=== PATIENT | female | born 1995 | race Caucasian/White ===

== ENCOUNTER 2018-07-17 16:13 | Emergency (ER) | payer MEDICAID ==
[~2018-07-17] VITALS: Ht 144.8 cm; Wt 58.0 kg
[~2018-07-17 16:13] MED LIST: PREN1TAB79 PO
[2018-07-17 16:25] VITALS: Ht 144.8 cm; Wt 58.0 kg
[2018-07-17] MEDS ORDERED: PRED20TA PO (17:03)
--- NOTE | 2018-07-17 17:06 | ERD ---
ER Documentation Chief Complaint Chief Complaint CONGESTION X 2 WEEKS HPI 23-year-old female is here stating that at night she has difficulty breathing secondary to chest congestion and phlegm. During the day mostly she is okay although she does have some cough. Symptoms have been going on for over 3 weeks. No fever. No vomiting. No vomiting. ROS All systems reviewed and are negative except as per history of present illness. Medications Home Meds Active Scripts Prednisone* (Prednisone*) 20 Mg Tab, 40 MG PO DAILY for 4 Days, TAB Prov:JOSE RAUL IRENE PA-C 07/17/18 Reported Medications Vit W-Ca,Fe,FA(<1 mg) ( Vitamins) 1 Each Tablet, 1 EACH PO, TAB 01/16/16 Allergies Allergies: Coded Allergies: No Known Allergy (Unverified , 01/16/16) PMhx/Soc Hx Alcohol Use: No Hx Substance Use: No Hx Tobacco Use: No Smoking Status: Never smoker FmHx Family History: No diabetes Physical Exam Vitals Vital Signs Date Temp Pulse Resp B/P (MAP) Pulse Ox O2 O2 Flow FiO2 Time Delivery Rate 07/17/18 97.8 83 20 106/62 98 16:25 (77) Physical Exam INITIAL VITAL SIGNS: Reviewed by me GENERAL: Awake, alert and oriented x 4, well appearing, nontoxic, speaking in full sentences. No acute distress HEAD: Atraumatic NECK: Supple. No masses. Full range of motion. No meningismus. No midline tenderness. EYES: EOMI. PERRL. EAR: No tenderness over the mastoids bilaterally. No exudates in the canals. TMs nonerythematous. NOSE: Normal nose. THROAT: No tonilar erythema or edema. No exudates. Uvula midline. No kissing tonsils. RESPIRATORY: Clear to auscultation bilaterally. Symmetric chest wall rise. No wheezing or rales. No accessory muscle use. CV: Regular rate and rhythm. No murmurs, rubs, or gallops. ABDOMEN: Soft, Nontender. Negative [place]. Negative McBurneys point te nderness. No CVA tenderness bilaterally. No guarding. No rebound. Procedures/MDM 23-year-old is here for coughing and congestion for the past 3 weeks it is worse at night and gives her sensation that she feels like she cannot breathe especially when she is lying down. Exam is normal. I doubt she needs antibiotics. She is given a short course of prednisone. Patient counseled regarding my diagnostic impression and care plan. Prior to discharge all questions answered. Pt agrees with treatment plan and understands strict return precautions. Pt is instructed to follow up with primary care provider within 24- 48 hours. Precautionary instructions provided including instructions to return to the ER if not improving or for any worsening or changing symptoms or concerns. Departure Diagnosis: Primary Impression: Chest congestion Condition: Stable Patient Instructions: Uri, Viral, No Abx (Adult) Additional Instructions: Llame al doctor MAANA y samara maricruz RAGHAV PARA DENTRO DE 1-2 NAZARIO.Dgale a la se cretaria que nosotros le instruimos hacer esta raghav.Avise o llame si molina condicin se empeora antes de la raghav. Regresa aqui si peor o no mejor. JOSE RAUL IRENE PA-C Jul 17, 2018 17:06
== END 2018-07-17 18:18 | disposition home or self-care (01) ==
LOC: FTE 16:13
DX: R09.89 Other specified symptoms and signs involving the circulatory and respiratory systems (principal)
CPT/HCPCS: 99283

== ENCOUNTER 2018-09-04 19:24 | Outpatient (CLI) | payer MEDICAID ==
[~2018-09-04] VITALS: Ht 142.2 cm; Wt 60.7 kg
[~2018-09-04 19:24] MED LIST changes: +PRED20TA PO
[2018-09-04 20:11] VITALS: BP 103/67; PULSE 101; RESP 18
[2018-09-04] MEDS ORDERED: FERR134T PO (20:13)
--- NOTE | 2018-09-04 21:18 | PN ---
Triage Information Date/Time Reason for visit: DFM Weeks of Gestation 35 weeks and 6 days /Para Diabetes: none Hypertention: none Objective Vital Signs Date Temp Pulse Resp B/P (MAP) Pulse Ox O2 O2 Flow FiO2 Time Delivery Rate 09/04/18 98.0 101 18 103/67 Room Air 20:11 (79) Heart Rate: 120's Heart Rate Comments Reactive Results/Medications Imaging Results BPP8/8 Disposition: Discharge Assessment/Plan While being monitored, patient feels the baby move MAXIMUS JENKINS MD Sep 04, 2018 21:18
--- NOTE | 2018-09-05 05:35 | TRIAGE ---
OB Triage Datetime Report Generated by CPN: 09/05/2018 05:35 Datetime: 09/04/2018 19:56 Stage of : OB Triage Labor Evaluation Monitor Mode: External Quality: Mild Pattern: Normal: <= 5 Contractions in 10 Minutes Resting Tone [place]: Relaxed Heart Rate FHR Baseline Rate: 140 Monitor Mode: External US FHR Baseline Changes: No Baseline Change Variability: Moderate 6-25 bpm Accelerations: 15X15 Decelerations: None Category: Category I Datetime: 09/04/2018 19:47 EGA: 35.6 Datetime: 09/04/2018 19:45 Time of Arrival: 09/04/2018 19:15 Arrived By: Ambulatory Arrived From: Home Chief Complaint: sent from clinic w/ orders for NST/BPP. States "baby moving as usual but less than Dr wants". Movement: Decreased Contractions: Denies/Absent Rupture of Membranes: Denies Vaginal Bleeding: None Vaginal Discharge: Denies Recent Sexual Intercouse: Denies Abdominal Trauma: Not Applicable Patient Complaints: None Time Provider Notified: 09/05/2018 20:55 Provider Notified: Dr Ramirez Initial Plan: NST, BPP Datetime: 09/04/2018 19:34 Stage of : OB Triage Maternal Assessment Level of Consciousness: Fully Conscious Headache: Denies Blurred Vision: No Nausea/Vomiting: Denies RUQ Epigastric Pain: Denies Facial Edema: None Labor Evaluation Monitor Mode: External Resting Tone [place]: Relaxed Monitor Mode: External US Comments: FHT 135 Pain Assessment Pain Scale: 0 Pain Presence: None/Denies Pain Type: N/A
== END 2018-09-04 21:15 | disposition home or self-care (01) ==
LOC: OBT 19:24 → L-D 19:24 → OBT 21:15
PROVIDERS: ATTEND Obstetrics & Gynecology
DX: O36.8130 Decreased fetal movements, third trimester, not applicable or unspecified (principal); Z3A.35 35 weeks gestation of pregnancy
CPT/HCPCS: 76818; Z7500; G0463

== ENCOUNTER 2018-10-01 16:08 | Inpatient (IN) | payer MEDICAID ==
[~2018-10-01] VITALS: Ht 142.2 cm; Wt 61.2 kg
[~2018-10-01 16:08] MED LIST changes: +FERR134T PO; -PRED20TA PO
--- NOTE | 2018-10-01 16:31 | TRIAGE ---
OB Triage Datetime Report Generated by CPN: 10/01/2018 16:30 Datetime: 10/01/2018 16:22 Vaginal Exam Dilatation (cms): 4.0 Effacement (%): 100 Station: -2 Exam By: Morgan WHITTAKER Datetime: 10/01/2018 16:19 Stage of : OB Triage Assessment Type: Triage Time of Arrival: 10/01/2018 16:00 EGA: 39.5 Arrived By: Ambulatory Arrived From: Home Chief Complaint: UC'S Movement: Present Contractions: Regular Contractions: 1 -10 MINUTES Rupture of Membranes: Denies Vaginal Bleeding: None Vaginal Discharge: Denies Recent Sexual Intercouse: Denies Abdominal Trauma: Not Applicable Patient Complaints: Contractions Time Provider Notified: 10/01/2018 16:29 Provider Notified: DR. PONCE Initial Plan: EFM VE CALL MD Maternal Assessment Level of Consciousness: Fully Conscious DTR's/Clonus: DTRs 2+; No Clonus Headache: Denies Blurred Vision: No Respiratory Effort: Unlabored; Regular Rhythm; Equal Expansion Breath Sounds, Left: Clear and Equal Breath Sounds, Right: Clear and Equal Nausea/Vomiting: Denies RUQ Epigastric Pain: Denies Lower Extremities Edema: None Upper Extremities Edema: None Degree: None Facial Edema: None Temperature Route: Oral Fall Risk Assessment History of Falling: (0) No Secondary Diagnosis: (0) No Ambulatory Aid: (0) Bedrest/Nurse Assist IV Therapy: (0) No Gait: (0) Normal/Bedrest/Immobile Mental Status: (0) Oriented to Own Ability Fall Score: 0 Fall Risk Score Definition: No Risk: No action required Labor Evaluation Monitor Mode: External (Annotations: INIITIAL PLACMENT ) Monitor Mode: External US (Annotations: INIIIAL PLACEMENT ) Pain Assessment Pain Scale: 5 Pain Presence: Intermittent Pain Type: Cramping Pain Location: Abdomen Datetime: 09/04/2018 21:04 Stage of : OB Triage Datetime: 09/04/2018 20:55 Stage of : OB Triage Heart Rate FHR Baseline Rate: 130 Monitor Mode: External US FHR Baseline Changes: No Baseline Change Variability: Moderate 6-25 bpm Accelerations: 15X15 Decelerations: None Category: Category I Datetime: 09/04/2018 19:47 EGA: 35.6
[2018-10-01] MEDS ORDERED: LIDOCAINE 1% (MPF) 30 ML INJ INJ PRN (17:00)
[2018-10-01] MEDS ORDERED: OXYTOCIN 30 UNITS/LR 500 ML IV SCH ×2 (17:00)
[2018-10-01] MEDS ORDERED: BUTORPHANOL 2 MG INJ IV PRN (17:00)
[2018-10-01] MEDS ORDERED: MISOPROSTOL 200 MCG TAB PR PRN (17:00)
[2018-10-01] MEDS ORDERED: METHYLERGONOVINE 0.2 MG INJ IM PRN (17:00)
[2018-10-01] MEDS ORDERED: OXYTOCIN 30 UNITS/LR 500 ML IV PRN (17:00)
[2018-10-01] MEDS ORDERED: CARBOPROST 250 MCG INJ IM PRN (17:00)
[2018-10-01] MEDS: LACTATED RINGER'S 1,000 ML IV SCH ×3 (17:33→22:48)
--- NOTE | 2018-10-01 19:41 | PREAC ---
Date/Time of Note Date/Time of Note DATE: 10/01/18 TIME: 19:40 Anesthesia Eval and Record Evaluation Time Pre-Procedure Interview DATE: 10/01/18 TIME: 19:40 Age 23 Sex female NPO: 8 hrs Preoperative diagnosis labor pain Planned procedure labor epidural Past Medical History Past Medical History: None Surgery & Anesthesia Issues No known issue Meds Anticoagulation: No Beta Ortiz within 24 hr: No Reason Beta Ortiz not given: Pt. not on B-Ortiz Reported Medications Ferrous Sulfate (Iron) 134 Mg Tablet, 134 MG PO DAILY, TAB 09/04/18 Vit W-Ca,Fe,FA(<1 mg) ( Vitamins) 1 Each Tablet, 1 EACH PO, TAB 01/16/16 Current Medications Lactated Ringer's 1,000 ml @ 125 mls/hr Q8H IV Last administered on 10/01/18at 17:33; Admin Dose 125 MLS/HR; Start 10/01/18 at 16:31 Butorphanol Tartrate (Stadol) 2 mg Q2H PRN IV .PAIN; Start 10/01/18 at 17:00 Lidocaine (Xylocaine 1% (Mpf)) 30 ml ONCE PRN INJ .EPISIOTOMY; Start 10/01/18 at 17:00 Oxytocin/Lactated Ringer's 500 ml @ 500 mls/hr ONCE POST IV ; Start 10/01/18 at 17:00 Oxytocin/Lactated Ringer's 500 ml @ 125 mls/hr POST IV ; Start 10/01/18 at 17:00 Oxytocin/Lactated Ringer's 500 ml @ 0 mls/hr ONCE PRN IV .VAGINAL BLEEDING; Start 10/01/18 at 17:00 Methylergonovine Maleate (Methergine) 0.2 mg ONCE PRN IM .VAGINAL BLEEDING; Start 10/01/18 at 17:00 Carboprost Tromethamine (Hemabate) 250 mcg ONCE PRN IM .VAGINAL BLEEDING; Start 10/01/18 at 17:00 Misoprostol (Cytotec) 1,000 mcg ONCE PRN [place] .VAGINAL BLEEDING; Start 10/01/18 at 17:00 Meds reviewed: Yes Allergies Coded Allergies: No Known Allergy (Unverified , 09/04/18) Allergies Reviewed: Yes Labs/Studies Labs Reviewed: Reviewed by anesthesiologist Result Diagram: 10/01/18 8348 Laboratory Tests 10/01/18 17:08 Blood Bank Test 10/01/18 16:50 Antibody Screen NEGATIVE Blood Type O POSITIVE Rh Immune Globulin Candidate NO test: Positive Pre-procedure Exam Airway: Adequate mouth opening, Adequate thyromental dist Mallampati: Mallampati III Teeth: Normal Lung: Normal Heart: Normal ASA Physical Status ASA physical status: 2 Emergency: None Planned Anesthetic Neuraxial: Epidural Planned Pain Management Epidural, Parenteral pain med, Other neuraxial med Pre-operative Attestations Prior to commencing anesthesia and surgery, the patient was re-evaluated, there was verification of: *The patient's identity *The results of appropriate recent lab work and preoperative vital signs *The above evaluation not changing prior to induction *Anesthetic plan, risk benefits, alternative and complications discussed with patient/family; questions answered; patient/family understands, accepts and wishes to proceed. CEZAR JC MD Oct 01, 2018 19:41
[2018-10-01] MEDS ORDERED: FENTAnyl 2MCG/ML-ROPIV 0.2% 100 ML BAG EPI SCH (20:00)
[2018-10-01] MEDS ORDERED: HYDROmorphONE 0.5 MG/0.5 ML SYG IV PRN ×2 (20:00)
[2018-10-01] MEDS ORDERED: KETOROLAC 30 MG INJ IV PRN (20:00)
[2018-10-01] MEDS ORDERED: ONDANSETRON 4 MG INJ IV PRN (20:00)
[2018-10-01] MEDS ORDERED: ZOLPIDEM 5 MG TAB PO PRN (20:00)
[2018-10-01] MEDS ORDERED: NALOXONE (0.4 MG/ML) INJ IV PRN (20:00)
[2018-10-01] MEDS ORDERED: DIPHENHYDRAMINE 50 MG INJ IV PRN (20:00)
[2018-10-01 20:27] VITALS: Ht 142.2 cm; Wt 61.2 kg
[2018-10-01 20:28] VITALS: BP 108/65; PULSE 76; RESP 16
--- NOTE | 2018-10-01 21:03 | PREAC ---
Date/Time of Note Date/Time of Note DATE: 10/01/18 TIME: 21:02 Anesthesia Eval and Record Evaluation Time Pre-Procedure Interview DATE: 10/01/18 TIME: 21:02 Age 23 Sex female NPO: 8 hrs Preoperative diagnosis labor pain Planned procedure labor epidural Past Medical History Past Medical History: None Surgery & Anesthesia Issues No known issue Meds Anticoagulation: No Beta Ortiz within 24 hr: No Reason Beta Ortiz not given: Pt. not on B-Ortiz Reported Medications Ferrous Sulfate (Iron) 134 Mg Tablet, 134 MG PO DAILY, TAB 09/04/18 Vit W-Ca,Fe,FA(<1 mg) ( Vitamins) 1 Each Tablet, 1 EACH PO, TAB 01/16/16 Current Medications Lactated Ringer's 1,000 ml @ 125 mls/hr Q8H IV Last administered on 10/01/18at 19:59; Admin Dose 125 MLS/HR; Start 10/01/18 at 16:31 Butorphanol Tartrate (Stadol) 2 mg Q2H PRN IV .PAIN Last administered on 10/01/18at 19:59; Admin Dose 2 MG; Start 10/01/18 at 17:00 Lidocaine (Xylocaine 1% (Mpf)) 30 ml ONCE PRN INJ .EPISIOTOMY; Start 10/01/18 at 17:00 Oxytocin/Lactated Ringer's 500 ml @ 500 mls/hr ONCE POST IV ; Start 10/01/18 at 17:00 Oxytocin/Lactated Ringer's 500 ml @ 125 mls/hr POST IV ; Start 10/01/18 at 17:00 Oxytocin/Lactated Ringer's 500 ml @ 0 mls/hr ONCE PRN IV .VAGINAL BLEEDING; Start 10/01/18 at 17:00 Methylergonovine Maleate (Methergine) 0.2 mg ONCE PRN IM .VAGINAL BLEEDING; Start 10/01/18 at 17:00 Carboprost Tromethamine (Hemabate) 250 mcg ONCE PRN IM .VAGINAL BLEEDING; Start 10/01/18 at 17:00 Misoprostol (Cytotec) 1,000 mcg ONCE PRN [place] .VAGINAL BLEEDING; Start 10/01/18 at 17:00 Hydromorphone HCl (Dilaudid) 0.2 mg Q2H PRN IV .PAIN 1-5; Start 10/01/18 at 20:00; Stop 10/02/18 at 19:44 Hydromorphone HCl (Dilaudid) 0.4 mg Q2H PRN IV .PAIN 6-10; Start 10/01/18 at 20:00; Stop 10/02/18 at 19:44 Ketorolac Tromethamine (Toradol) 30 mg Q6H PRN IV .PAIN 6-10; Start 10/01/18 at 20:00; Stop 10/02/18 at 19:44 Diphenhydramine HCl (Benadryl) 25 mg Q4H PRN IV .PRURITUS; Start 10/01/18 at 20:00; Stop 10/02/18 at 19:44 Ondansetron HCl (Zofran Inj) 4 mg Q6H PRN IV .NAUSEA/VOMITING; Start 10/01/18 at 20:00; Stop 10/02/18 at 19:44 Zolpidem Tartrate (Ambien) 5 mg HS MAY REPEAT X 1 PRN PO .INSOMNIA; Start 10/01/18 at 20:00; Stop 10/02/18 at 19:44 Naloxone HCl (Narcan) 0.2 mg Q2M PRN IV .RESP RATE; Start 10/01/18 at 20:00; Stop 10/02/18 at 19:44 Fentanyl/ Ropivacaine 100 ml EPIDURAL (PCEA) EPI ; Start 10/01/18 at 20:00; Stop 10/02/18 at 19:44 Meds reviewed: Yes Allergies Coded Allergies: No Known Allergy (Unverified , 09/04/18) Allergies Reviewed: Yes Labs/Studies Labs Reviewed: Reviewed by anesthesiologist Result Diagram: 10/01/18 1708 Laboratory Tests 10/01/18 17:08 Blood Bank Test 10/01/18 16:50 Antibody Screen NEGATIVE Blood Type O POSITIVE Rh Immune Globulin Candidate NO test: Positive Pre-procedure Exam Last vitals Vital Signs Date Temp Pulse Resp B/P (MAP) Pulse Ox O2 O2 Flow FiO2 Time Delivery Rate 10/01/18 98.1 76 16 108/65 Room Air 20:28 (79) Airway: Adequate mouth opening, Adequate thyromental dist Mallampati: Mallampati III Teeth: Normal Lung: Normal Heart: Normal ASA Physical Status ASA physical status: 2 Emergency: None Planned Anesthetic Neuraxial: Epidural Planned Pain Management Epidural, Parenteral pain med, Other neuraxial med Pre-operative Attestations Prior to commencing anesthesia and surgery, the patient was re-evaluated, there was verification of: *The patient's identity *The results of appropriate recent lab work and preoperative vital signs *The above evaluation not changing prior to induction *Anesthetic plan, risk benefits, alternative and complications discussed with patient/family; questions answered; patient/family understands, accepts and wishes to proceed. CEZAR JC MD Oct 01, 2018 21:03
--- NOTE | 2018-10-01 21:53 | PAC ---
Date/Time of Note Date/Time of Note DATE: 10/01/18 TIME: 21:53 Post-Anesthesia Notes Post-Anesthesia Note Activity: WNL Respiratory function: WNL Cardiovascular function: WNL Mental status: Baseline Pain reasonably controlled: Yes Hydration appropriate: Yes Nausea/Vomiting absent: Yes CEZAR JC MD Oct 01, 2018 21:53
--- NOTE | 2018-10-01 22:16 | PREAC ---
Date/Time of Note Date/Time of Note DATE: 10/01/18 TIME: 22:15 Anesthesia Eval and Record Evaluation Time Pre-Procedure Interview DATE: 10/01/18 TIME: 22:15 Age 23 Sex female NPO: 8 hrs Preoperative diagnosis labor pain Planned procedure labor epidural Past Medical History Past Medical History: None Surgery & Anesthesia Issues No known issue Meds Anticoagulation: No Beta Ortiz within 24 hr: No Reason Beta Ortiz not given: Pt. not on B-Ortiz Reported Medications Ferrous Sulfate (Iron) 134 Mg Tablet, 134 MG PO DAILY, TAB 09/04/18 Vit W-Ca,Fe,FA(<1 mg) ( Vitamins) 1 Each Tablet, 1 EACH PO, TAB 01/16/16 Current Medications Lactated Ringer's 1,000 ml @ 125 mls/hr Q8H IV Last administered on 10/01/18at 19:59; Admin Dose 125 MLS/HR; Start 10/01/18 at 16:31 Butorphanol Tartrate (Stadol) 2 mg Q2H PRN IV .PAIN Last administered on 10/01/18at 19:59; Admin Dose 2 MG; Start 10/01/18 at 17:00 Lidocaine (Xylocaine 1% (Mpf)) 30 ml ONCE PRN INJ .EPISIOTOMY; Start 10/01/18 at 17:00 Oxytocin/Lactated Ringer's 500 ml @ 500 mls/hr ONCE POST IV ; Start 10/01/18 at 17:00 Oxytocin/Lactated Ringer's 500 ml @ 125 mls/hr POST IV ; Start 10/01/18 at 17:00 Oxytocin/Lactated Ringer's 500 ml @ 0 mls/hr ONCE PRN IV .VAGINAL BLEEDING; Start 10/01/18 at 17:00 Methylergonovine Maleate (Methergine) 0.2 mg ONCE PRN IM .VAGINAL BLEEDING; Start 10/01/18 at 17:00 Carboprost Tromethamine (Hemabate) 250 mcg ONCE PRN IM .VAGINAL BLEEDING; Start 10/01/18 at 17:00 Misoprostol (Cytotec) 1,000 mcg ONCE PRN [place] .VAGINAL BLEEDING; Start 10/01/18 at 17:00 Hydromorphone HCl (Dilaudid) 0.2 mg Q2H PRN IV .PAIN 1-5; Start 10/01/18 at 20:00; Stop 10/02/18 at 19:44 Hydromorphone HCl (Dilaudid) 0.4 mg Q2H PRN IV .PAIN 6-10; Start 10/01/18 at 20:00; Stop 10/02/18 at 19:44 Ketorolac Tromethamine (Toradol) 30 mg Q6H PRN IV .PAIN 6-10; Start 10/01/18 at 20:00; Stop 10/02/18 at 19:44 Diphenhydramine HCl (Benadryl) 25 mg Q4H PRN IV .PRURITUS; Start 10/01/18 at 20:00; Stop 10/02/18 at 19:44 Ondansetron HCl (Zofran Inj) 4 mg Q6H PRN IV .NAUSEA/VOMITING; Start 10/01/18 at 20:00; Stop 10/02/18 at 19:44 Zolpidem Tartrate (Ambien) 5 mg HS MAY REPEAT X 1 PRN PO .INSOMNIA; Start 10/01/18 at 20:00; Stop 10/02/18 at 19:44 Naloxone HCl (Narcan) 0.2 mg Q2M PRN IV .RESP RATE; Start 10/01/18 at 20:00; Stop 10/02/18 at 19:44 Fentanyl/ Ropivacaine 100 ml EPIDURAL (PCEA) EPI ; Start 10/01/18 at 20:00; Stop 10/02/18 at 19:44 Meds reviewed: Yes Allergies Coded Allergies: No Known Allergy (Unverified , 09/04/18) Allergies Reviewed: Yes Labs/Studies Labs Reviewed: Reviewed by anesthesiologist Result Diagram: 10/01/18 1708 Laboratory Tests 10/01/18 17:08 Blood Bank Test 10/01/18 16:50 Antibody Screen NEGATIVE Blood Type O POSITIVE Rh Immune Globulin Candidate NO test: Positive Pre-procedure Exam Last vitals Vital Signs Date Temp Pulse Resp B/P (MAP) Pulse Ox O2 O2 Flow FiO2 Time Delivery Rate 10/01/18 98.1 76 16 108/65 Room Air 20:28 (79) Airway: Adequate mouth opening, Adequate thyromental dist Mallampati: Mallampati III Teeth: Normal Lung: Normal Heart: Normal ASA Physical Status ASA physical status: 2 Emergency: None Planned Anesthetic Neuraxial: Epidural Planned Pain Management Epidural, Parenteral pain med, Other neuraxial med Pre-operative Attestations Prior to commencing anesthesia and surgery, the patient was re-evaluated, there was verification of: *The patient's identity *The results of appropriate recent lab work and preoperative vital signs *The above evaluation not changing prior to induction *Anesthetic plan, risk benefits, alternative and complications discussed with patient/family; questions answered; patient/family understands, accepts and wishes to proceed. CEZAR JC MD Oct 01, 2018 22:16
--- NOTE | 2018-10-01 22:21 | PAC ---
Date/Time of Note Date/Time of Note DATE: 10/01/18 TIME: 22:20 Post-Anesthesia Notes Post-Anesthesia Note Last documented vital signs Vital Signs Date Temp Pulse Resp B/P (MAP) Pulse Ox O2 O2 Flow FiO2 Time Delivery Rate 10/01/18 98.1 76 16 108/65 Room Air 20:28 (79) Activity: WNL Respiratory function: WNL Cardiovascular function: WNL Mental status: Baseline Pain reasonably controlled: Yes Hydration appropriate: Yes Nausea/Vomiting absent: Yes CEZAR JC MD Oct 01, 2018 22:21
[2018-10-02] MEDS ORDERED: OXYTOCIN 30 UNITS/LR 500 ML IV SCH ×2 (03:00→05:28)
[2018-10-02] MEDS: LACTATED RINGER'S 1,000 ML IV SCH (04:43)
[2018-10-02] MEDS: LACTATED RINGER'S 1,000 ML IV* SCH ×2 (05:28→15:25)
[2018-10-02] MEDS ORDERED: OXYTOCIN 30 UNITS/LR 500 ML IV PRN (05:30)
[2018-10-02] MEDS ORDERED: MISOPROSTOL 200 MCG TAB PR PRN (05:30)
[2018-10-02] MEDS ORDERED: LANOLIN HPA 1 PKT TOP PRN (05:30)
[2018-10-02] MEDS ORDERED: BENZOCAINE 20% 56 ML SPRAY TOP PRN (05:30)
[2018-10-02] MEDS ORDERED: METHYLERGONOVINE 0.2 MG INJ IM PRN (05:30)
[2018-10-02] MEDS ORDERED: CARBOPROST 250 MCG INJ IM PRN (05:30)
--- NOTE | 2018-10-02 05:37 | LDN ---
Date/Time of Note Date/Time of Note DATE: 10/02/18 TIME: 05:35 Delivery Summary of a viable baby girl weighing 3350 grams or 7# 6 oz, 19.5" long, and with Apgars of 9/9. Weeks of Gestation 39w 6d Placenta Delivered: Spontaneously Meconium: none Episiotomy: No Perineal laceration: 0 Laceration repair: 1st degree periurethral laceration repaired. Anesthesia type: Epidural Estimated blood loss: 150 Sponge & Needle done & correct: Yes All needle counts correct: Yes Any foreign bodies felt in the: No (vagina) Infant Delivery Information Sex Sex: female Apgars 1 Minute: 9 5 Minute: 9 Suctioning Nose & mouth suctioned at chantel: Yes Delee suction performed: No Umbilical Cord Umbilical cord with: 3 Vessels Cord presentations: no nuchal cord Cord Blood was obtained: Yes Mother & Baby Disposition Disposition Mom & Baby to Maternity; Good: Yes Baby to NICU: No ERROL MCKINNON MD Oct 02, 2018 05:37
--- NOTE | 2018-10-02 05:41 | HP ---
Date/Time of Note Date/Time of Note DATE: 10/02/18 TIME: 05:37 OB - History Hx of Present Free Text/Dictation 23 y.o. with an IUP at 39w 5d came in active labor with an initial exam of 4cm/ 100%/-2. Estimated Due Date: Oct 03, 2018 : 2 Para: 1 Care: Good Care Ultrasounds: Normal mid trimester US Obstetrical Complications: None Medical Complications: None Other Concerns: PMHx: none. PSHx: none. NKDA Past Family/Social History * Past Medical, Surgical, Family and Obstetric Histories reviewed from chart. Blood Type: O+ Rubella: immune RPR/VDRL: Negative GBS Status: Negative HBsAG: Negative OB Admission Exam Vital Signs Vital Signs Vital Signs Date Temp Pulse Resp B/P (MAP) Pulse Ox O2 O2 Flow FiO2 Time Delivery Rate 10/01/18 98.1 76 16 108/65 Room Air 20:28 (79) Physical Exam HEENT: WNL Heart: Rhythm Normal Lungs: Clear Abdomen: WNL Extremities: Normal Reflexes: Normal Cervical Dilatation: 4cm Effacement: 100% Station: -2 Membranes: Intact Amniotic Fluid: Clear Heart Rate: 130's Accelerations: Accelerations Present Decelerations: No Decelerations Varibility: Moderate Intensity: Moderate Last 72 hours Lab Results CBC & BMP 10/01/18 17:08 OB Assessment/Plan Reason for admission: active labor Plan: Expectant Management ERROL MCKINNON MD Oct 02, 2018 05:41
[2018-10-02] MEDS: IBUPROFEN 600 MG TAB PO SCH ×4 (05:58→23:37)
[2018-10-02] MEDS: HYDROCODONE/APAP (5/325) TAB PO PRN ×2 (06:56→15:24)
[2018-10-02 08:03] VITALS: BP 106/60; PULSE 77; RESP 18
[2018-10-02 08:30] VITALS: BP 102/78; PULSE 74; RESP 16
[2018-10-02 11:59] VITALS: BP 107/52; PULSE 81; RESP 18
[2018-10-02 15:51] VITALS: BP 106/67; PULSE 66; RESP 20
[2018-10-02 20:15] VITALS: BP 106/72; PULSE 80; RESP 18
[2018-10-03 00:35] VITALS: BP 103/70; PULSE 75; RESP 18
[2018-10-03 04:28] VITALS: BP 95/2; PULSE 74; RESP 18
[2018-10-03] MEDS: IBUPROFEN 600 MG TAB PO SCH ×4 (05:28→23:25)
[2018-10-03] MEDS: HYDROCODONE/APAP (5/325) TAB PO PRN ×3 (06:22→21:59)
[2018-10-03 08:15] VITALS: BP 96/62; PULSE 70; RESP 18
--- NOTE | 2018-10-03 10:47 | PN ---
Date/Time of Note Date/Time of Note DATE: 10/03/18 TIME: 10:43 OB Subjective Subjective Subjective PPD# 1 Patient is doing well. She denies nausea, vomiting, shortness of breath, chest pain, headache. She has been ambulating without difficulty, tolerating regular diet. Pain is well controlled on current medications OB Objective Objective Objective VS - Last 72 Hours, by Label Date Temp Pulse Resp B/P (MAP) Pulse Ox O2 O2 Flow FiO2 Time Delivery Rate 10/03/18 97.7 70 18 96/62 (73) Room Air 08:15 10/03/18 97.5 74 18 95/2 (33) Room Air 04:28 10/03/18 98.0 75 18 103/70 Room Air 00:35 (81) 10/02/18 98.4 80 18 106/72 Room Air 20:15 (83) 10/02/18 97.7 66 20 106/67 Room Air 15:51 (80) 10/02/18 98.5 81 18 107/52 Room Air 11:59 (70) 10/02/18 98.7 74 16 102/78 Room Air 08:30 (86) 10/02/18 97.8 77 18 106/60 Room Air 08:03 (75) 10/01/18 98.1 76 16 108/65 Room Air 20:28 (79) General: AAO X 3, comfortable, NAD, appropriate mood and affect. ABD: +BS. Soft, non-tender. Uterus 2 cm below umbilicus Flank: No CVA tenderness (B/L) LE: Mild edema. No clubbing, cyanosis, thigh or calf tenderness (B/L). Homans 'sign is negative Laboratory Tests Test 10/01/18 16:50 10/01/18 17:08 10/03/18 06:34 10/03/18 07:55 Prothrombin Time 12.0 Sec Prothrombin Time 0.9 Ratio INR 0.88 International Normalized Ratio Activated 25.8 Sec Partial Thrombop last Time Rapid Plasma NONREACTIVE Reagin Hepatitis B NEGATIVE Surface Antigen White Blood 6.6 10^3/ul 7.7 10^3/ul Count Red Blood Count 4.01 10^6/ul 3.67 10^6/ul Hemoglobin 11.9 g/dl 11.1 g/dl Hematocrit 34.7 % 32.5 % Mean Corpuscular 86.5 fl 88.6 fl Volume Mean Corpuscular 29.7 pg 30.2 pg Hemoglobin Mean Corpuscular 34.3 g/dl 34.2 g/dl Hemoglobin [place] nt Red Cell 13.9 % 14.2 % Distribution Width Platelet Count 254 10^3/UL 227 10^3/UL Mean Platelet 10.3 fl 10.4 fl Volume Immature 0.500 % 0.800 % Granulocytes % Neutrophils % 72.5 % 61.4 % Lymphocytes % 19.8 % 28.0 % Monocytes % 6.0 % 6.1 % Eosinophils % 0.9 % 3.2 % Basophils % 0.3 % 0.5 % Nucleated Red 0.0 /100WBC 0.0 /100WBC Blood Cells % Immature 0.030 10^3/ul 0.060 10^3/ul Granulocytes # Neutrophils # 4.8 10^3/ul 4.7 10^3/ul Lymphocytes # 1.3 10^3/ul 2.2 10^3/ul Monocytes # 0.4 10^3/ul 0.5 10^3/ul Eosinophils # 0.1 10^3/ul 0.3 10^3/ul Basophils # 0.0 10^3/ul 0.0 10^3/ul Nucleated Red 0.0 10^3/ul 0.0 10^3/ul Blood Cells # Lab Scanned REFERENCE Report LAB [id number] OB Assessment/Plan Other plan: 23 years old 2 para 2-0-0-2 s/p normal vaginal delivery at 39 weeks and 5 days. PPD#1 - AF, VSS - Contraception methods with R/B/A/FR discussed - Continue care - Discharge home tomorrow - Rx and instruction given - Follow up in 2 and 6 weeks at clinic ALEJANDRA PONCE Oct 03, 2018 10:47
--- NOTE | 2018-10-03 10:48 | DS ---
Date/Time of Note Date/Time of Note DATE: 10/03/18 TIME: 10:47 Obstetrical Discharge Record Final Diagnosis Final Diagnosis: Term delivered Other Final Diagnosis 23 years old 2 para 2-0-0-2 s/p normal vaginal delivery at 39 weeks and 5 days. PPD#1. course was unremarkable. She is ambulating and tolerating regular diet. She is voiding without difficulty. Pain is controlled on current medication. - AF, VSS - Contraception methods with R/B/A/FR discussed - Continue care - Discharge home tomorrow - Rx and instruction given - Follow up in 2 and 6 weeks at clinic Vaginal Delivery Obstetrical Delivery: Spontaneous Condition on Discharge Physical Assessment Last Vitals: Vital Signs Date Temp Pulse Resp B/P (MAP) Pulse Ox O2 O2 Flow FiO2 Time Delivery Rate 10/03/18 97.7 70 18 96/62 (73) Room Air 08:15 Voiding: Yes Bowel Movement: Yes Breast: Soft, non-tender Fundus: Firm Calf Tenderness: No Patient Condition: Stable ALEJANDRA PONCE Oct 03, 2018 10:48
[2018-10-03 16:03] VITALS: BP 114/74; PULSE 89; RESP 18
[2018-10-03 20:00] VITALS: BP 127/80; PULSE 67; RESP 18
[2018-10-04] MEDS ORDERED: BISACODYL 10 MG SUPP PR PRN (01:30)
[2018-10-04] MEDS ORDERED: MAGNESIUM HYDROXIDE 30ML CUP PO PRN (01:30)
[2018-10-04] MEDS: HYDROCODONE/APAP (5/325) TAB PO PRN ×4 (01:51→13:18)
[2018-10-04 04:05] VITALS: BP 115/65; PULSE 62
[2018-10-04] MEDS: IBUPROFEN 600 MG TAB PO SCH ×2 (06:29→11:33)
[2018-10-04 08:00] VITALS: BP 110/61; PULSE 64; RESP 18
[2018-10-04] MEDS ORDERED: DIPHTH/TET/ACEL PERTUSS (ADULT) 0.5 ML VIAL IM* ONE (09:00)
--- NOTE | 2018-10-05 14:48 | DELSUM ---
Delivery Summary A-C Datetime Report Generated by CPN: 10/05/2018 14:48 DELIVERY PERSONNEL [employer] Bath Attendant: Kashman, Beatriz MATERNAL INFORMATION Delivery Anesthesia: Epidural Medications in Delivery: Pitocin 30 units in LR Delivery QBL (ml): 234 Placenta Cultured: No Maternal Complications: None LABOR SUMMARY EDC: 10/03/2018 00:00 No. Babies in Womb: 1 Attempted: No Labor Anesthesia: Epidural LABOR INFORMATION Reason for Induction: Not Applicable Complete Dilatation: 10/02/2018 04:46 Cervical Ripening Agents: Cytotec @ 50 Oxytocin: Augmentation Group B Beta Strep: Negative Antibiotics # of Doses: 0 Steroids Given: None Reason Steroids Not Administered: Not Applicable MEMBRANES Membranes Rupture Method: Spontaneous Rupture of Membranes: 10/01/2018 23:50 Length of Rupture (hr): 5.23 Amniotic Fluid Color: Clear Amniotic Fluid Amount: Moderate Amniotic Fluid Odor: None STAGES OF LABOR Stage 2 hr: 0 Stage 2 min: 18 Stage 3 hr: 0 Stage 3 min: 5 VAGINAL DELIVERY Episiotomy: None Laceration Extension: First Degree Laceration Type: Periurethral Laceration Repair: Yes Initial Vag Sponge Count: 10 Final Vag Sponge Count: 10 Initial Vag Sharps Count: 1 Final Vag Sharps Count: 2 Sponge Count Correct: Yes Sharps Count Correct: Yes BABY A INFORMATION Delivery Date/Time: 10/02/2018 05:04 Method of Delivery: Vaginal Born in Route : No : N/A Forceps: N/A Vacuum Extraction: N/A Shoulder Dystocia : No SHOULDER DYSTOCIA BABY A Delivery Date/Time: 10/02/2018 05:04 PRESENTATION/POSITION BABY A Presentation: Cephalic Cephalic Presentation: Vertex Breech Presentation: N/A PLACENTA INFORMATION BABY A Placenta Delivery Time : 10/02/2018 05:09 Placenta Method of Delivery: Expressed Placenta Status: Delivered SCORES BABY A Heart Rate 1 min: >100 bpm Resp Effort 1 min: Good Cry Reflex Irritability 1 min: Cough/Sneeze/Pulls Away Muscle Tone 1 min: Active Motion Color 1 min: Body [place], Extremit Blue Resuscitation Effort 1 min: Tactile Stimulation SCORE 1 MIN: 9 Heart Rate 5 min: >100 bpm Resp Effort 5 min: Good Cry Reflex Irritability 5 min: Cough/Sneeze/Pulls Away Muscle Tone 5 min: Active Motion Color 5 min: Body [place], Extremit Blue Resuscitation Effort 5 min: N/A SCORE 5 MIN: 9 INFORMATION BABY A Gestational Age at Delivery: 39.6 Gestational Status: Full Term- 39- 40.6 Weeks Infant Outcome : Liveborn Infant Condition : Stable Sex: Female IDENTIFICATION/MEDS BABY A ID Band Number: [id number] ID Band Location: Right Leg; Left Arm Sensor Applied: Yes Sensor Number: [id number] Sensor Location : Cord Clamp Vitamin K Given : Not Given Erythromycin Given: Not Given WEIGHT/LENGTH BABY A Infant Birthweight (gm): 3350 Weight (lb): 7 Weight (oz): 6 Infant Length (in): 19.50 Infant Length (cm): 49.53 CORD INFORMATION BABY A No. 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
== END 2018-10-04 14:48 | disposition home or self-care (01) | DRG 807 ==
LOC: OBT 16:08 → L-D 16:09 → OBT 16:25 → L-D 20:50 → PP1 10-02 08:30
PROVIDERS: ADMIT Obstetrics & Gynecology; ATTEND Obstetrics & Gynecology
PROC: 10E0XZZ Delivery of Products of Conception, External Approach (ICD-10-PCS; principal; 2018-10-02)
PROC: 0HQ9XZZ Repair Perineum Skin, External Approach (ICD-10-PCS; 2018-10-02)
DX: O70.0 First degree perineal laceration during delivery (principal); Z37.0 Single live birth; Z3A.39 39 weeks gestation of pregnancy
CPT/HCPCS: 76815; 85025; 85610; 85730; 86592; 86850; 86900; 86901; 87340; 90715; G0463; J0595; J2590; J3010; J7120